=== PATIENT | male | born 1955 | race Two or more races ===

== ENCOUNTER 2020-12-03 15:25 | Emergency (ER) | payer OTHER, BC ==
[~2020-12-03] VITALS: Ht 152.4 cm; Wt 90.7 kg
[2020-12-03] MEDS ORDERED: ZYLOPRIM100 M1 (16:01)
[2020-12-03] MEDS ORDERED: CARVEDILOL12.5 MG (16:01)
[2020-12-03] MEDS ORDERED: LEVOTHYROXINE25 MCG (16:01)
[2020-12-03] MEDS ORDERED: LOTREL 10-40 M1 EACH (16:01)
[2020-12-03] MEDS ORDERED: MEDROLPACK PO (17:48)
[2020-12-03] MEDS ORDERED: ALLEGRA ALLERG180 MG PO (17:48)
== END 2020-12-03 17:51 | disposition home or self-care (01) ==
LOC: ER 15:25
DX: R21 Rash and other nonspecific skin eruption (principal); T78.49XA Other allergy, initial encounter; X58.XXXA Exposure to other specified factors, initial encounter

== ENCOUNTER 2022-02-06 12:49 | Emergency (ER) | payer OTHER ==
[~2022-02-06] VITALS: Ht 157.5 cm; Wt 96.2 kg
[~2022-02-06 12:49] MED LIST: ALLEGRA ALLERG180 MG PO; CARVEDILOL12.5 MG; LEVOTHYROXINE25 MCG; LOTREL 10-40 M1 EACH; MEDROLPACK PO; ZYLOPRIM100 M1
== END 2022-02-06 17:11 | disposition left against medical advice (07) ==
LOC: ER 12:49
DX: S61.213A Laceration without foreign body of left middle finger without damage to nail, initial encounter (principal); W26.0XXA Contact with knife, initial encounter; Y93.89 Activity, other specified; Y92.010 Kitchen of single-family (private) house as the place of occurrence of the external cause; Y99.9 Unspecified external cause status